=== PATIENT | male | born 1960 | race Caucasian/White ===

== ENCOUNTER 2020-05-06 04:22 | Day surgery (SDC) | payer OTHER ==
[2020-05-03 14:05] VITALS: BMI 33.0
[2020-05-06] MEDS ORDERED: MIDAZOLAM HCL 2 MG/2 ML SINGLE DOSE VIAL ONE (10:19)
[2020-05-06] MEDS ORDERED: PROPOFOL 20 ML ONE (10:19)
[2020-05-06 12:05] VITALS: TEMP 96.8
[2020-05-06 13:01] VITALS: BP 138/96; PULSE 63
== END 2020-05-06 13:05 | disposition home or self-care (01) ==
LOC: JASU-SURG 04:22
PROVIDERS: ATTEND Urology
PROC: 0TF3XZZ Fragmentation in Right Kidney Pelvis, External Approach (ICD-10-PCS; principal; 2020-05-06 10:30)
DX: N20.0 Calculus of kidney (principal)

== ENCOUNTER 2021-07-02 05:24 | Day surgery (SDC) | payer OTHER ==
[2021-06-27 11:18] VITALS: BMI 32.3
[2021-07-02] MEDS ORDERED: KETOROLAC TROMETHAMINE 30 MG/1 ML VIAL ONE (11:26)
[2021-07-02] MEDS ORDERED: MIDAZOLAM HCL 2 MG/2 ML SINGLE DOSE VIAL ONE (11:26)
[2021-07-02 13:16] VITALS: BP 148/80; PULSE 60; TEMP 98.4
== END 2021-07-02 13:15 | disposition home or self-care (01) ==
LOC: JASU-SURG 05:24
PROVIDERS: ATTEND Urology
PROC: 0TF4XZZ Fragmentation in Left Kidney Pelvis, External Approach (ICD-10-PCS; principal; 2021-07-02 11:00)
DX: N20.0 Calculus of kidney (principal)

== ENCOUNTER 2024-04-03 07:20 | Day surgery (SDC) | payer OTHER ==
[2024-03-31 10:04] VITALS: BMI 33.0
[2024-04-03 06:38] VITALS: RESP 18
[2024-04-03] MEDS ORDERED: MIDAZOLAM HCL 2 MG/2 ML SINGLE DOSE VIAL ONE (07:36)
[2024-04-03] MEDS ORDERED: PROPOFOL 20 ML ONE (08:08)
[2024-04-03 10:27] VITALS: BP 141/87; PULSE 60; TEMP 97.9
== END 2024-04-03 09:35 | disposition home or self-care (01) ==
LOC: JASU-SURG 07:20
PROVIDERS: ATTEND Urology
PROC: 0TF3XZZ Fragmentation in Right Kidney Pelvis, External Approach (ICD-10-PCS; principal; 2024-04-03 07:30)
DX: N20.0 Calculus of kidney (principal)